=== PATIENT | female | born 1995 | race Caucasian/White ===

== ENCOUNTER 2017-03-03 20:43 | Emergency (ER) | payer SELFPAY ==
[~2017-03-03] VITALS: Ht 157.5 cm; Wt 68.5 kg
[~2017-03-03 20:43] MED LIST: AMOXICILLIN875 MG PO; MEDROL DOSEPAK4 MG PO; NAPROSYN500 MG PO; NOHOMEMEDS; PREDNISONE10 M1 PO; TESSALON PERLE100 MG PO; ULTRAM50 MG PO; ZANTAC150 MG PO; ZITHROMAX Z-PA250 MG PO; ZOFRAN4 MG PO; no home meds
[2017-03-03 20:58] VITALS: BP 135/86
[2017-03-03] MEDS ORDERED: ATIVAN1 MG PO (23:06)
== END 2017-03-03 23:23 | disposition home or self-care (01) ==
LOC: EME 20:43
DX: R07.89 Other chest pain (principal)
CPT/HCPCS: 99281; 99283